=== PATIENT | male | born 1975 | race Two or more races ===

== ENCOUNTER 2022-08-28 13:31 | Outpatient (REF) | payer OTHER, SELFPAY ==
--- NOTE | 2022-08-28 08:00 | EMG_ITS ---
Bilateral tibial and peroneal motor studies were performed. Bilateral sural and superficial peroneal studies were performed. Tibial H-reflexes were obtained and paraspinal muscles were tested. 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 MD TRACY Snider/ALINE / [id number]
== END 2022-08-28 13:32 | disposition home or self-care (01) ==
LOC: HO.NEURO 13:31
PROVIDERS: PCP Internal Medicine; Visit Provider Internal Medicine
DX: R20.2 Paresthesia of skin (principal)
CPT/HCPCS: 95886; 95911